=== PATIENT | female | born 1990 | race Caucasian/White ===

== ENCOUNTER 2018-10-03 22:51 | Emergency (ER) | payer SELFPAY ==
[2018-10-03] MEDS ORDERED: Dextrose 50% SYRINGE Inj (50 ml) IVP ONE (22:58)
[2018-10-03] MEDS ORDERED: Naloxone 0.4 mg/ml Inj (Adult) IVP STA (23:03)
--- NOTE | 2018-10-03 23:06 | ED PDOC ---
Arrival/HPI - General Chief Complaint: Altered Mental Status Time Seen by Provider: 10/03/18 22:55 Historian: EMS - History of Present Illness Narrative History of Present Illness (Text): 10/03/18 23:02 28 year old female, with an unknown past medical history, presents to the emergency department by EMS for altered mental status. EMS state patient was found at food store speaking incoherently. EMS transported patient to the ER for evaluation of AMS and possible drug/ alcohol intoxication. HPI and ROS limited due to AMS. Time/Duration: Prior to Arrival Symptom Course: Unchanged Context: Street Past Medical History - Provider Review Nursing Documentation Reviewed: Yes - Infectious Disease Hx of Infectious Diseases: None - Psychiatric Hx Substance Use: No Family/Social History - Physician Review Nursing Documentation Reviewed: Yes Family/Social History: No Known Family HX Smoking Status: Unknown If Ever Smoked Hx Alcohol Use: No Hx Substance Use: No Allergies/Home Meds Allergies/Adverse Reactions: Allergies losartan Allergy (Verified 10/03/18 22:55) URTICARIA Home Medications: Home Meds Medication Instructions Recorded Confirmed Unobtainable 10/03/18 10/03/18 Review of Systems - Review of Systems Systems not reviewed;Unavailable: Altered Mental Status Physical Exam Vital Signs Reviewed: Yes Temperature: Hypothermic Blood Pressure: Hypertensive Pulse: Regular Respiratory Rate: Normal Appearance: Positive for: Non-Toxic, Comfortable Pain Distress: None Mental Status: Positive for: Confused (Somnolent; minimally arousable) - Systems Exam Head: Present: Atraumatic, Normocephalic Pupils: Present: Pinpoint (Small but reactive) Conjunctiva: Present: Normal Mouth: Present: Moist Mucous Membranes Neck: Present: Normal Range of Motion Respiratory/Chest: Present: Clear to Auscultation, Good Air Exchange. No: Respiratory Distress, Accessory Muscle Use Cardiovascular: Present: Regular Rate and Rhythm, Normal S1, S2. No: Murmurs Abdomen: No: Tenderness, Distention, Peritoneal Signs Upper Extremity: Present: Normal Inspection. No: Cyanosis, Edema Lower Extremity: Present: Normal Inspection. No: Edema Neurological: No: Speech Normal Skin: Present: Warm, Dry, Normal Color. No: Rashes Psychiatric: Present: Other (Somnolent; minimally arousable) Medical Decision Making ED Course and Treatment: 10/03/18 23:06 Impression: 28 year old female presents with AMS. Plan: -- CT Head -- EKG -- Labs, drug screen -- CBC -- Chest X-ray -- Dextrose 50% -- Narcan -- Reassess and disposition Prior Visits: Notes and results from previous visits were reviewed. Progress Notes: 10/03/18 23:15 EKG Reviewed by me, shows: Normal sinus rhythm @ 75bpm Normal EKG 10/04/18 00:40 CT Head without Intravenous Contrast. CLINICAL HISTORY: AMS TECHNIQUE: Axial computed tomography images of the head/brain without intravenous contrast. 846.74 mGy-cm COMPARISON: None provided. FINDINGS: BRAIN No acute intraparenchymal hemorrhage. No mass lesion. No CT evidence for acute territorial infarct. No midline shift or extra-axial collections. VENTRICLES: No hydrocephalus. ORBITS: The orbits are unremarkable. SINUSES AND MASTOIDS: The paranasal sinuses and mastoid air cells are clear. BONES: No fracture. SOFT TISSUES: Unremarkable. IMPRESSION: No acute intracranial abnormality. 10/04/18 02:13 Patient is awake and alert, admitting to using Ambien and Amphetamine drugs. Patient informs she did this for recreational purposes. Patient denies any suicidal or homicidal ideation. 10/04/18 03:15 Patient remains awake and alert stating she feels fine. 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 Full follow up care instructions given to the patient. - RAD Interpretation Radiology Orders: 10/03/18 22:56 HEAD W/O CONTRAST [CT] Stat 10/03/18 22:57 CHEST PORTABLE [RAD] Stat - Medication Orders Current Medication Orders: Discontinued Medications Dextrose (Dextrose 50% Inj) 50 ml IVP ONCE ONE Stop: 10/03/18 22:59 - Scribe Statement The provider has reviewed the documentation as recorded by the Denise Sanchez Provider Scribe Attestation: All medical record entries made by the Scribwes were at my direction and personally dictated by me. I have reviewed the chart and agree that the record accurately reflects my personal performance of the history, physical exam, medical decision making, and the department course for this patient. I have also personally directed, reviewed, and agree with the discharge instructions and disposition. Disposition/Present on Arrival - Present on Arrival Any Indicators Present on Arrival: No History of DVT/PE: No History of Uncontrolled Diabetes: No Urinary Catheter: No History of Decub. Ulcer: No History Surgical Site Infection Following: None - Disposition Have Diagnosis and Disposition been Completed?: Yes Diagnosis: Polysubstance abuse Disposition: HOME/ ROUTINE Disposition Time: 03:12 Patient Plan: Discharge Patient Problems: Current Active Problems Problem Status Onset Polysubstance abuse Acute Condition: GOOD Discharge Instructions (ExitCare): Polysubstance Abuse (DC) Additional Instructions: Avoid recreational drug use/follow up with your doctor this week Referrals: PCP,NO [Primary Care Provider] - Follow up with primary [facility] [Outside] - Follow up with primary Forms: [employer] (Citizen [place])
[2018-10-03 23:09] VITALS: TEMP 96.4
[2018-10-03 23:17] LABS: HEMOGLOBIN 12.9 g/dL (12.0-16.0); MEAN CELL VOLUME 86.2 fl (80.0-105.0); MEAN CORPUSCULAR HEMOGLOBIN 28.7 pg (25.0-35.0); MEAN CORPUSCULAR HGB CONC 33.3 g/dl (31.0-37.0); MEAN PLATELET VOLUME 8.9 fl (7.0-11.0); RBC 4.49 10^6/uL (3.5-6.1); RED CELL DISTRIBUTION WIDTH 12.1 % (11.5-14.5); WHITE BLOOD COUNT 5.1 10^3/uL (4.5-11.0)
[2018-10-03 23:31] LABS: ACETAMINOPHEN < 10.0 ug/ml (10.0-20.0); SALICYLATE < 1 mg/dL (2.0-20.0)
[2018-10-03 23:32] LABS: ALB/GLOB RATIO 1.1 (1.1-1.8); ALBUMIN 4.1 g/dL (3.0-4.8); ALT/SGPT 130 U/L (7-56); AST/SGOT 178 U/L (14-36); BLOOD UREA NITROGEN 17 mg/dL (7-21); GFR NON-AFRICAN AMERICAN > 60
[2018-10-03 23:49] LABS: TROPONIN I < 0.01 ng/mL
[2018-10-04 00:12] LABS: BARBITURATES, UR NEGATIVE (NEGATIVE); BENZODIAZEPINES, UR NEGATIVE (NEGATIVE); OPIATES, UR NEGATIVE (NEGATIVE); PHENCYCLIDINE, UR NEGATIVE (NEGATIVE)
[2018-10-04 01:51] VITALS: O2SAT 96
[2018-10-04 03:23] VITALS: BP 148/99; PULSE 92; RESP 17
--- NOTE | 2018-10-04 07:58 | RAD ---
Date of service: 10/03/2018 HISTORY: medical clearance COMPARISON: No prior. TECHNIQUE: 1 view obtained. FINDINGS: LUNGS: No active pulmonary disease. PLEURA: No significant pleural effusion identified, no pneumothorax apparent. CARDIOVASCULAR: No aortic atherosclerotic calcification present. Normal cardiac size. No pulmonary vascular congestion. OSSEOUS STRUCTURES: No significant abnormalities. VISUALIZED UPPER ABDOMEN: Normal. OTHER FINDINGS: None. IMPRESSION: No active disease.
--- NOTE | 2018-10-04 09:07 | CT ---
Date of service: 10/03/2018 PROCEDURE: CT HEAD WITHOUT CONTRAST. HISTORY: Altered mental status COMPARISON: None available. TECHNIQUE: Axial computed tomography images were obtained through the head/brain without intravenous contrast. Radiation dose: Total exam DLP = 846.74 mGy-cm. This CT exam was performed using one or more of the following dose reduction techniques: Automated exposure control, adjustment of the mA and/or kV according to patient size, and/or use of iterative reconstruction technique. FINDINGS: HEMORRHAGE: No intracranial hemorrhage. BRAIN: Tatum-white matter differentiation is preserved. There is no mass, mass effect or abnormal extra-axial fluid collection. There is no territorial infarction. The midline sagittal structures are normal. VENTRICLES: The ventricles are normal in size, shape and configuration. CALVARIUM: There is no calvarial fracture or extracranial soft tissue swelling. PARANASAL SINUSES: Predominantly clear. MASTOID AIR CELLS: Predominantly clear. OTHER FINDINGS: None. IMPRESSION: No acute intracranial abnormality. A preliminary report was provided by [employer].
--- NOTE | 2018-10-04 12:30 | CARD ---
APPROVED REPORT Date of service: 10/03/2018 EKG Measurement Heart [id number] <Conclusion> Normal sinus rhythm Normal ECG
== END 2018-10-04 03:18 | disposition home or self-care (01) ==
LOC: MERGE 22:51 → ED 22:51
DX: F19.10 Other psychoactive substance abuse, uncomplicated (principal)
CPT/HCPCS: 70450; 71045; 80053; 81025; 82550; 82948; 83615; 84484; 85027; 93005; 96374; 96375; 99285; G0480; J2310